=== PATIENT | male | born 1960 | race Caucasian/White ===

== ENCOUNTER 2016-12-24 08:34 | Emergency (ER) | payer BC ==
[2016-12-24 08:53] VITALS: TEMP 96.7
--- NOTE | 2016-12-24 08:57 | ED ---
General Adult HPI - General Chief complaint: Dizziness Stated complaint: Dizziness Time Seen by Provider: 12/24/16 08:49 Source: EMS, RN notes reviewed, old records reviewed Mode of arrival: EMS Limitations: no limitations - History of Present Illness Initial comments: This is a 48-year-old male the ER for evaluation. This patient is coming in for evaluation of dizziness and the room spinning. Patient coming in for evaluation with symptoms any head left-sided to today. Patient states he wakes his diet and tasers in the room does spin around. Mild recent headache, no trauma. No fevers. No significant ear pain or loss of hearing. Patient to get walkie did feel dizzy but that did improve. No history of heart disease no history of CVA, patient does take daily aspirin. - Related Data Home Medications Medication Instructions Recorded Confirmed Aspirin EC [Ecotrin Low Dose] 81 mg PO DAILY 12/24/16 12/24/16 Atenolol [Tenormin] 50 mg PO DAILY 12/24/16 12/24/16 Losartan/Hydrochlorothiazide 1 tab PO DAILY 12/24/16 12/24/16 [Losartan-Hctz 100-25 mg Tab] Allergies Allergy/AdvReac Type Severity Reaction Status Date / Time No Known Allergies Allergy Unverified 12/24/16 09:00 Review of Systems ROS Statement: Those systems with pertinent positive or pertinent negative responses have been documented in the HPI. ROS Other: All systems not noted in ROS Statement are negative. Past Medical History Past Medical History: Hypertension History of Any Multi-Drug Resistant Organisms: None Reported Past Surgical History: Hernia Repair Additional Past Surgical History / Comment(s): left knee scope, and facial surgery Past Psychological History: No Psychological Hx Reported Smoking Status: Never smoker Past Alcohol Use History: None Reported Past Drug Use History: None Reported General Exam - General Exam Comments Initial Comments: No nystagmus noted, no cerebellar symptoms noted on exam, finger-nose, heel to david Limitations: no limitations General appearance: alert, in no apparent distress Head exam: Present: atraumatic, normocephalic, normal inspection Eye exam: Present: normal appearance, PERRL, EOMI. Absent: scleral icterus, conjunctival injection, nystagmus, periorbital swelling ENT exam: Present: normal exam, mucous membranes moist Neck exam: Present: normal inspection. Absent: tenderness, meningismus, lymphadenopathy Respiratory exam: Present: normal lung sounds bilaterally. Absent: respiratory distress, wheezes, rales, rhonchi, stridor Cardiovascular Exam: Present: regular rate, normal rhythm, normal heart sounds. Absent: systolic murmur, diastolic murmur, rubs, gallop, clicks GI/Abdominal exam: Present: soft, normal bowel sounds. Absent: distended, tenderness, guarding, rebound, rigid Extremities exam: Present: normal inspection, full ROM, normal capillary refill. Absent: tenderness, pedal edema, joint swelling, calf tenderness Back exam: Present: normal inspection Neurological exam: Present: alert, oriented X3, CN II-XII intact Psychiatric exam: Present: normal affect, normal mood Skin exam: Present: warm, dry, intact, normal color. Absent: rash Course Vital Signs 12/24/16 08:45 Temperature 96.7 F L Pulse Rate 66 Respiratory 18 Rate Blood Pressure 157/89 O2 Sat by Pulse 91 L Oximetry - Reevaluation(s) Reevaluation #1: 12/24/16 09:55 Patient is currently and remains without symptoms. Patient got up to walk and able to ambulate without ataxia EKG Findings - EKG Comments: EKG Findings:: EKG shows normal sinus rhythm rate of 63, CO 182, QRS 88, QTC 446 Medical Decision Making - Medical Decision Making 56 male here for evaluation vertiginous symptoms. Symptoms are resolved we'll prescribe nausea medication and symptomatic therapy with Antivert, CT is negative low risk for stroke and patient can be discharged home - Lab Data Result diagrams: 12/24/16 08:54 12/24/16 08:54 Lab Results 12/24/16 12/24/16 12/24/16 Range/Units 08:54 08:54 08:54 WBC 7.5 (3.8-10.6) k/uL RBC 5.03 (4.30-5.90) m/uL Hgb 14.6 (13.0-17.5) gm/dL Hct 42.8 (39.0-53.0) % MCV 85.0 (80.0-100.0) fL MCH 29.1 (25.0-35.0) pg MCHC 34.2 (31.0-37.0) g/dL RDW 13.3 (11.5-15.5) % Plt Count 117 L (150-450) k/uL Neutrophils % 79 % Lymphocytes % 16 % Monocytes % 3 % Eosinophils % 1 % Basophils % 1 % Neutrophils # 5.9 (1.3-7.7) k/uL Lymphocytes # 1.2 (1.0-4.8) k/uL Monocytes # 0.2 (0-1.0) k/uL Eosinophils # 0.0 (0-0.7) k/uL Basophils # 0.1 (0-0.2) k/uL PT (9.0-12.0) sec INR (<1.1) APTT (22.0-30.0) sec Sodium 139 (137-145) mmol/L Potassium 3.8 (3.5-5.1) mmol/L Chloride 103 (98-107) mmol/L Carbon Dioxide 24 (22-30) mmol/L Anion Gap 12 mmol/L BUN 21 H (9-20) mg/dL Creatinine 0.91 (0.66-1.25) mg/dL Est GFR (MDRD) Af Amer >60 (>60 ml/min/1.73 sqM) Est GFR (MDRD) Non-Af >60 (>60 ml/min/1.73 sqM) Glucose 165 H (74-99) mg/dL Calcium 9.1 (8.4-10.2) mg/dL Phosphorus 3.1 (2.5-4.5) mg/dL Magnesium 1.8 (1.6-2.3) mg/dL Total Bilirubin 0.6 (0.2-1.3) mg/dL AST 33 (17-59) U/L ALT 56 (21-72) U/L Alkaline Phosphatase 81 (38-126) U/L Total Creatine Kinase 88 (55-170) U/L Total Protein 7.0 (6.3-8.2) g/dL Albumin 4.2 (3.5-5.0) g/dL 12/24/16 Range/Units 08:54 WBC (3.8-10.6) k/uL RBC (4.30-5.90) m/uL Hgb (13.0-17.5) gm/dL Hct (39.0-53.0) % MCV (80.0-100.0) fL MCH (25.0-35.0) pg MCHC (31.0-37.0) g/dL RDW (11.5-15.5) % Plt Count (150-450) k/uL Neutrophils % % Lymphocytes % % Monocytes % % Eosinophils % % Basophils % % Neutrophils # (1.3-7.7) k/uL Lymphocytes # (1.0-4.8) k/uL Monocytes # (0-1.0) k/uL Eosinophils # (0-0.7) k/uL Basophils # (0-0.2) k/uL PT 10.3 (9.0-12.0) sec INR 1.0 (<1.1) APTT 21.4 L (22.0-30.0) sec Sodium (137-145) mmol/L Potassium (3.5-5.1) mmol/L Chloride (98-107) mmol/L Carbon Dioxide (22-30) mmol/L Anion Gap mmol/L BUN (9-20) mg/dL Creatinine (0.66-1.25) mg/dL Est GFR (MDRD) Af Amer (>60 ml/min/1.73 sqM) Est GFR (MDRD) Non-Af (>60 ml/min/1.73 sqM) Glucose (74-99) mg/dL Calcium (8.4-10.2) mg/dL Phosphorus (2.5-4.5) mg/dL Magnesium (1.6-2.3) mg/dL Total Bilirubin (0.2-1.3) mg/dL AST (17-59) U/L ALT (21-72) U/L Alkaline Phosphatase (38-126) U/L Total Creatine Kinase (55-170) U/L Total Protein (6.3-8.2) g/dL Albumin (3.5-5.0) g/dL - Radiology Data Radiology results: report reviewed (CT brain is negative for acute disease), image reviewed Disposition Clinical Impression: Benign paroxysmal positional vertigo Disposition: HOME SELF-CARE Condition: Good Instructions: Vertigo (ED), Benign Paroxysmal Positional Vertigo (ED) Referrals: Antonio Hernandez MD [Primary Care Provider] - 1-2 days
[2016-12-24] MEDS ORDERED: ONDANSETRON 4 MG/2 ML VIAL IVP STA (09:05)
[2016-12-24] MEDS ORDERED: SODIUM CHLORIDE 0.9% 1,000 ML IV STA (09:05)
[2016-12-24] MEDS ORDERED: diphenhydrAMINE 50 MG/ML 1 ML VIAL IVP STA (09:06)
[2016-12-24 09:31] LABS: Basophils # (A) 0.1 k/uL (0-0.2); Basophils % (A) 1 %; CH 30.5; Eosinophils % (A) 1 %; HCT 42.8 % (39.0-53.0); HDW 2.86; HGB 14.6 gm/dL (13.0-17.5); Luc # (Auto) 0.07; Luc % (Auto) 1; Lymphocytes # (A) 1.2 k/uL (1.0-4.8); Lymphocytes % (A) 16 %; MCH 29.1 pg (25.0-35.0); MCHC 34.2 g/dL (31.0-37.0); Mean Platelet Volume 10.1; Monocytes # (A) 0.2 k/uL (0-1.0); Monocytes % (A) 3 %; Neutrophils # (A) 5.9 k/uL (1.3-7.7); Neutrophils % (A) 79 %; RBC 5.03 m/uL (4.30-5.90); RDW 13.3 % (11.5-15.5); WBC 7.5 k/uL (3.8-10.6); WBC (Perox) 7.76
[2016-12-24 09:38] LABS: ALT 56 U/L (21-72); AST 33 U/L (17-59); Alkaline Phosphatase 81 U/L (38-126); Anion Gap 12 mmol/L; Blood Urea Nitrogen 21 mg/dL (9-20); Calcium 9.1 mg/dL (8.4-10.2); Carbon Dioxide 24 mmol/L (22-30); Chloride 103 mmol/L (98-107); Glucose 165 mg/dL (74-99); Magnesium 1.8 mg/dL (1.6-2.3); Non-African American GFR(MDRD) >60 (>60 ml/min/1.73 sqM); Phosphorous 3.1 mg/dL (2.5-4.5); Potassium 3.8 mmol/L (3.5-5.1); Sodium 139 mmol/L (137-145); Total Bilirubin 0.6 mg/dL (0.2-1.3)
[2016-12-24 09:43] LABS: Prothrombin Time 10.3 sec (9.0-12.0)
[2016-12-24 09:47] LABS: Creatine Kinase 88 U/L (55-170)
--- NOTE | 2016-12-24 09:51 | CT ---
EXAMINATION TYPE: CT brain wo con DATE OF EXAM: 12/24/2016 9:48 AM COMPARISON: NONE HISTORY: Weakness CT DLP: [address] of the brain was performed. The ventricles, basal cisterns and sulci overlying the cerebral convexities demonstrate mild enlargem ent. There is no evidence for intracranial hemorrhage or sulcal effacement. There is decreased attenuation about the periventricular white matter and deep white matter of both c erebral hemispheres, compatible with chronic small vessel ischemia. Differential diagnosis does inclu de demyelination. No mass effects are seen.No midline shift. Osseous calvarium is intact. If symptoms persist consider MRI. IMPRESSION: 1. Age related atrophic and chronic small vessel ischemic change without acute intracranial process s een at this time.
[2016-12-24 09:52] LABS: Partial Thromboplastin Time 21.4 sec (22.0-30.0)
[2016-12-24 10:00] LABS: Creatine Kinase MB 0.4 ng/mL (0.0-2.4); Troponin I <0.012 ng/mL (0.000-0.034)
[2016-12-24 10:25] VITALS: BP 143/64; PULSE 71; RESP 16
== END 2016-12-24 10:24 | disposition home or self-care (01) ==
LOC: EC 08:34
DX: H81.10 Benign paroxysmal vertigo, unspecified ear (principal); Z79.82 Long term (current) use of aspirin; Z79.899 Other long term (current) drug therapy; I10 Essential (primary) hypertension
CPT/HCPCS: 36415; 93005; 80053; 82550; 82553; 83735; 84100; 84484; 85025; 85610; 85730; 70450; 96374; 96375; 96361; 99285; J1200; J2405

== ENCOUNTER → 2023-04-30 | Outpatient (CLI) | payer BC ==
[2023-04-30 15:12] LABS: Basophils # (A) 0.03 X 10*3/uL (0.00-0.10); Basophils % (A) 0.6 %; Eosinophils # (A) 0.09 X 10*3/uL (0.04-0.35); Eosinophils % (A) 1.7 %; HCT 42.3 % (39.6-50.0); HGB 13.9 g/dL (13.0-17.0); Immature Grans, Automated 0.6 %; Lymphocytes # (A) 1.96 X 10*3/uL (0.90-5.00); Lymphocytes % (A) 37.3 %; MCH 29.3 pg (27.0-32.0); MCHC 32.9 g/dL (32.0-37.0); MCV 89.2 fL (80.0-97.0); Mean Platelet Volume 12.8 fL (9.5-12.2); Monocytes # (A) 0.33 X 10*3/uL (0.20-1.00); Monocytes % (A) 6.3 %; NRBC Per 100 WBC 0 /100 WBCS (0.0-0.0); Neutrophils # (A) 2.82 X 10*3/uL (1.80-7.70); Neutrophils % (A) 53.5 %; Platelet Count 130 X 10*3/uL (140-440); RBC 4.74 X 10*6/uL (4.40-5.60); RDW 13.8 % (11.5-14.5); WBC 5.26 X 10*3/uL (4.50-10.00)
[2023-04-30 16:03] LABS: ALT 62 U/L (10-49); AST 46 U/L (14-35); African American GFR (CKD) 91.8 (60.0-200.0); Albumin 4.4 g/dL (3.8-4.9); Albumin/Globulin Ratio 1.85 (1.60-3.17); Alkaline Phosphatase 81 U/L (41-126); Blood Urea Nitrogen 18.8 mg/dL (9.0-27.0); Calcium 9.4 mg/dL (8.7-10.3); Carbon Dioxide 25.3 mmol/L (20.0-27.5); Chloride 104 mmol/L (96-109); Chol/HDL Ratio 4.99 Ratio; Globulin 2.4 g/dL (1.6-3.3); Glucose 111 mg/dL (70-110); LDL Cholesterol,Calculated 95.9 mg/dL (0.0-131.0); Non-African American GFR(CKD) 79.2 (60.0-200.0); Potassium 4.2 mmol/L (3.5-5.5); Sodium 140 mmol/L (135-145); Total Protein 6.8 g/dL (6.2-8.2)
== END | disposition home or self-care (01) ==
LOC: LABWHC1 08:50
PROVIDERS: ATTEND Family Medicine
DX: Z12.5 Encounter for screening for malignant neoplasm of prostate (principal); E78.5 Hyperlipidemia, unspecified; R73.9 Hyperglycemia, unspecified
CPT/HCPCS: 36415; 80053; 80061; 83036; 84153; 84443; 85025

== ENCOUNTER → 2024-05-08 | Outpatient (CLI) | payer BC ==
--- NOTE | 2024-05-08 18:13 | XR ---
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 FINDINGS: Lungs/Pleura: There is no evidence of pleural effusion, focal consolidation, or pneumothorax. Pulmonary vascularity: Unremarkable. Heart/mediastinum: Cardiomediastinal silhouette is unremarkable. Musculoskeletal: No acute osseous pathology. IMPRESSION: No acute cardiopulmonary disease/process.
== END | disposition home or self-care (01) ==
LOC: RADXRMAIN 17:23
PROVIDERS: ATTEND Family Medicine
DX: I25.2 Old myocardial infarction (principal); R06.09 Other forms of dyspnea
CPT/HCPCS: 71046

== ENCOUNTER → 2024-05-08 | Outpatient (CLI) | payer BC ==
--- NOTE | 2024-05-09 14:53 | CA ---
Transthoracic Echo Report Name: Elijah Reece Age: 63 Gender: M : 1960 Exam Date: 05/08/2024 17:55 Exam Location: [place] [facility] Ht (in): 71 Wt (lb): 295 Ordering Physician: Antonio Hernandez MD Attending/Referring Phys: Antonio Hernandez MD Answering Service Telephone Operator Amanda Cheng RDCS Procedure CPT: Indications: I10 HTN I25.2 OLD MYOCARDIAL INFARCTION Cardiac Hx: Technical Quality: Fair Contrast 1: Total Dose (mL): Contrast 2: Total Dose (mL): MEASUREMENTS (Male / Female) Normal Values 2D ECHO LV Diastolic Diameter PLAX 4.8 cm 4.2 - 5.9 / 3.9 - 5.3 cm LV Systolic Diameter PLAX 3.0 cm IVS Diastolic Thickness 1.7 cm 0.6 - 1.0 / 0.6 - 0.9 cm LVPW Diastolic Thickness 1.5 cm 0.6 - 1.0 / 0.6 - 0.9 cm LV Relative Wall Thickness 0.7 RV Internal Dim ED PLAX 4.3 cm LA Volume 86.6 cm??? 18 - 58 / 22 - 52 cm??? LA Volume Index 32.7 cm???/m??? 16 - 28 cm???/m??? M-MODE Aortic Root Diameter MM 3.2 cm LA Systolic Diameter MM 5.4 cm LA Ao Ratio MM 1.7 AV Cusp Separation MM 2.3 cm DOPPLER AV Peak Velocity 118.2 cm/s AV Peak Gradient 5.6 mmHg AV Mean Velocity 71.3 cm/s AV Mean Gradient 2.4 mmHg AV Velocity Time Integral 22.8 cm LVOT Peak Velocity 82.1 cm/s LVOT Peak Gradient 2.7 mmHg LVOT Velocity Time Integral 19.2 cm MV Area PHT 3.3 cm??? Mitral E Point Velocity 80.1 cm/s Mitral A Point Velocity 60.1 cm/s Mitral E to A Ratio 1.3 MV Deceleration Time 228.2 ms MV E' Velocity 7.6 cm/s Mitral E to MV E' Ratio 10.6 TR Peak Velocity 232.3 cm/s TR Peak Gradient 21.6 mmHg Right Ventricular Systolic Press 25.1 mmHg FINDINGS Left Ventricle Moderately increased left ventricular wall thickness. Left ventricular cavity size normal. Normal left ventricular systolic function with no obvious regional wall motion abnormalities. Left ventricular ejection fraction is estimated at 55-60 %. Grade 1 diastolic dysfunction. Right Ventricle Moderate right ventricular dilatation. Right ventricular systolic pressure within normal limits. Right Atrium Normal right atrial size. Left Atrium Mildly increased left atrial volume. Mildly increased left atrial area. Mitral Valve Structurally normal mitral valve. Mild mitral regurgitation. Aortic Valve No aortic valve stenosis or regurgitation. Tricuspid Valve Mild tricuspid regurgitation. Pulmonic Valve Structurally normal pulmonic valve. Pericardium No pericardial effusion. Aorta Normal size aortic root and proximal ascending aorta. CONCLUSIONS Technically difficult study for interpretation Poorly visualized endocardium an intracardiac valves Normal LV systolic function Previewed by: Dr. Ez Jimenez MD (Electronically Signed) Final Date: 09 May 2024 14:52
== END | disposition home or self-care (01) ==
LOC: RADECHMAIN 17:28
PROVIDERS: ATTEND Family Medicine
DX: I10 Essential (primary) hypertension (principal); I25.2 Old myocardial infarction
CPT/HCPCS: 93306

== ENCOUNTER 2024-06-21 01:12 | Observation (INO) | payer BC, MEDICARE ==
--- NOTE | 2024-06-21 02:13 | ED ---
Abdominal Pain HPI - General Chief Complaint: Back Pain/Injury Stated Complaint: L Hip and Low Back Pain Time Seen by Provider: 06/21/24 01:44 Source: patient, RN notes reviewed, old records reviewed Mode of arrival: ambulatory Limitations: no limitations - History of Present Illness Initial Comments: This is a 63-year-old male to the ER today for evaluation abdominal pain abdominal pain back pain left hip pain pain rating to his groin and abdomen. Edvin ramirez has severe and significant abdominal pain here in the ER without fever no bowel or bladder habits MD Complaint: abdominal pain, other (Left hip pain) Location: LLQ, suprapubic, L flank Radiation: LLQ, L flank Migration to: LLQ Severity: severe Severity scale (1-10): 8 Quality: stabbing, aching Consistency: intermittent Improves With: nothing Worsens With: nothing Context: other (0) Associated Symptoms: nausea Treatments Prior to Arrival: other (0) - Related Data Home Medications Medication Instructions Recorded Confirmed Aspirin EC [Ecotrin Low Dose] 162 mg PO DAILY 12/24/16 06/21/24 Losartan/Hydrochlorothiazide 1 tab PO DAILY 12/24/16 06/21/24 [Losartan-Hctz 100-25 mg Tab] Citalopram Hydrobromide [CeleXA] 10 mg PO DAILY 06/21/24 06/21/24 Rosuvastatin [Crestor] 10 mg PO DAILY 06/21/24 06/21/24 atenoloL [Tenormin] 50 mg PO DAILY 06/21/24 06/21/24 metFORMIN HCL ER [Glucophage XR] 500 mg PO DAILY 06/21/24 06/21/24 Allergies Allergy/AdvReac Type Severity Reaction Status Date / Time Anesthetics - Amide Type - AdvReac Nausea & Verified 06/21/24 08:44 Select A Vomiting Anesthetics - Teresa Type- AdvReac Nausea & Verified 06/21/24 08:44 Parabens Vomiting Review of Systems ROS Statement: Those systems with pertinent positive or pertinent negative responses have been documented in the HPI. ROS Other: All systems not noted in ROS Statement are negative. Past Medical History Past Medical History: Hypertension History of Any Multi-Drug Resistant Organisms: None Reported Past Surgical History: Hernia Repair Additional Past Surgical History / Comment(s): left knee scope, and facial surgery Past Psychological History: No Psychological Hx Reported Smoking Status: Never smoker Past Alcohol Use History: None Reported Past Drug Use History: None Reported General Exam Limitations: no limitations General appearance: alert, in no apparent distress Head exam: Present: atraumatic, normocephalic, normal inspection Eye exam: Present: normal appearance, PERRL, EOMI. Absent: scleral icterus, conjunctival injection, periorbital swelling ENT exam: Present: normal exam, mucous membranes moist Neck exam: Present: normal inspection. Absent: tenderness, meningismus, lymphadenopathy Respiratory exam: Present: normal lung sounds bilaterally. Absent: respiratory distress, wheezes, rales, rhonchi, stridor Cardiovascular Exam: Present: regular rate, normal rhythm, normal heart sounds. Absent: systolic murmur, diastolic murmur, rubs, gallop, clicks GI/Abdominal exam: Present: soft, normal bowel sounds. Absent: distended, tenderness, guarding, rebound, rigid Extremities exam: Present: normal inspection, full ROM, normal capillary refill. Absent: tenderness, pedal edema, joint swelling, calf tenderness Back exam: Present: normal inspection Neurological exam: Present: alert, oriented X3, CN II-XII intact Psychiatric exam: Present: normal affect, normal mood Skin exam: Present: warm, dry, intact, normal color. Absent: rash Course Vital Signs 06/21/24 06/21/24 06/21/24 01:31 06:54 08:07 Temperature 97.4 F L 97.6 F Pulse Rate 65 57 L 56 L Respiratory 20 18 20 Rate Blood Pressure 145/90 143/89 137/89 O2 Sat by Pulse 95 96 95 Oximetry - Reevaluation(s) Reevaluation #1: 06/21/24 03:45 Medical records reviewed Reevaluation #2: 06/21/24 03:46 Patient symptoms improved Reevaluation #3: 06/21/24 06:40 Patient for results and questions answered Reevaluation #4: Was pt. sent in by a medical professional or institution (, PA, MAP DRAFTER, urgent care, hospital, or [facility]...) When possible be specific @ -no Did you speak to anyone other than the patient for history (EMS, parent, family, police, friend...)? What history was obtained from this source @ -no Did you review nursing and triage notes (agree or disagree)? Why? @ -agree Are old charts reviewed (outside hosp., previous admission, EMS record, old EKG, old radiological studies, urgent care reports/EKG's, [facility] records)? Report findings @ -yes Differential Diagnosis (chest pain, altered mental status, abdominal pain women, abdominal pain men, vaginal bleeding, weakness, fever, dyspnea, syncope, headache, dizziness, GI bleed, back pain, seizure, CVA, palpatations, mental health, musculoskeletal)? @ -prior EKG interpreted by me (3pts min.). @ -yes X-rays interpreted by me (1pt min.). @ -no CT interpreted by me (1pt min.). @ -yes negative for acute disease U/S interpreted by me (1pt. min.). @ -no What testing was considered but not performed or refused? (CT, X-rays, U/S, labs)? Why? @ -none What meds were considered but not given or refused? Why? @ -none Did you discuss the management of the patient with other professionals (professionals i.e. , PA, MAP DRAFTER, lab, RT, psych nurse, older adult social work specialist, greaser and oiler, teacher, commanding officer garage, caser)? Give summary @ -no Was smoking cessation discussed for >3mins.? @ -no Was critical care preformed (if so, how long)? @ -no Were there social determinants of health that impacted care today? How? (Homelessness, low income, unemployed, alcoholism, drug addiction, transportat ion, low edu. Level, literacy, decrease access to med. care, penitentiary, rehab)? @ -none Was there de-escalation of care discussed even if they declined (Discuss DNR or withdrawal of care, Hospice)? DNR status @ -no What co-morbidities impacted this encounter? (DM, HTN, Smoking, COPD, CAD, Cancer, CVA, ARF, Chemo, Hep., AIDS, mental health diagnosis, sleep apnea, morbid obesity)? @ -none Was patient admitted / discharged? Hospital course, mention meds given and route, prescriptions, significant lab abnormalities, going to OR and other pertinent info. @ - 63 Patient has male to the ER for evaluation of severe left-sided back pain left flank pain pain rating around left side of his abdomen, no rash noted. Difficulty with urination. Admitted Undiagnosed new problem with uncertain prognosis? @ -no Drug Therapy requiring intensive monitoring for toxicity (Heparin, Nitro, Insulin, Cardizem)? @ -no Were any procedures done? @ -no Diagnosis/symptom? @ -Pain back pain flank pain Acute, or Chronic, or Acute on Chronic? @ -Acute Uncomplicated (without systemic symptoms) or Complicated (systemic symptoms)? @ -Complicated Side effects of treatment? @ -no Exacerbation, Progression, or Severe Exacerbation? @ -exacerbation Poses a threat to life or bodily function? How? (Chest pain, USA, AR, pneumonia, PE, COPD, DKA, ARF, appy, cholecystitis, CVA, Diverticulitis, Homicidal, Suicidal, threat to staff... and all critical care pts) @ -yes extremes of age Reevaluation #5: Differential Abdominal Pain Men: Appendicitis, cholecystitis, diverticulosis, ischemic bowel, pancreatitis, hepatitis, UTI, gastroenteritis, AAA, incarcerated hernia, bowel obstruction, co nstipation, inflammatory bowel, hepatitis, peptic ulcer disease, splenic infarction, perforated viscus, testicular torsion, this is not meant to be an all-inclusive list - Consultations Consultation #1: spoke With [facility] who agrees to admit this patient Medical Decision Making - Medical Decision Making 63 Patient has male to the ER for evaluation of severe left-sided back pain left flank pain pain rating around left side of his abdomen, no rash noted. Difficulty with urination. - Lab Data Result diagrams: 06/22/24 05:46 06/22/24 05:46 Lab Results 06/21/24 06/21/24 06/21/24 Range/Units 02:43 02:43 02:43 WBC 7.6 (3.8-10.6) k/uL RBC 4.69 (4.30-5.90) m/uL Hgb 14.2 (13.0-17.5) gm/dL Hct 41.9 (39.0-53.0) % MCV 89.3 (80.0-100.0) fL MCH 30.3 (25.0-35.0) pg MCHC 33.9 (31.0-37.0) g/dL RDW 13.4 (11.5-15.5) % Plt Count 139 L (150-450) k/uL MPV 10.3 Neutrophils % 67 % Lymphocytes % 26 % Monocytes % 5 % Eosinophils % 1 % Basophils % 0 % Neutrophils # 5.1 (1.3-7.7) k/uL Lymphocytes # 2.0 (1.0-4.8) k/uL Monocytes # 0.4 (0-1.0) k/uL Eosinophils # 0.1 (0-0.7) k/uL Basophils # 0.0 (0-0.2) k/uL Sodium 137 (137-145) mmol/L Potassium 5.8 H (3.5-5.1) mmol/L Chloride 107 (98-107) mmol/L Carbon Dioxide 23 (22-30) mmol/L Anion Gap 7 mmol/L BUN 22 H (9-20) mg/dL Creatinine 0.84 (0.66-1.25) mg/dL Est GFR (CKD-EPI)AfAm >90 (>60 ml/min/1.73 sqM) Est GFR (CKD-EPI)NonAf >90 (>60 ml/min/1.73 sqM) Glucose 172 H (74-99) mg/dL Plasma Lactic Acid Edward 1.4 (0.7-2.0) mmol/L Calcium 9.3 (8.4-10.2) mg/dL Phosphorus 3.9 (2.5-4.5) mg/dL Magnesium 2.0 (1.6-2.3) mg/dL Total Bilirubin 1.1 (0.2-1.3) mg/dL AST 90 H (17-59) U/L ALT 66 H (4-49) U/L Alkaline Phosphatase 52 (38-126) U/L Total Protein 7.7 (6.3-8.2) g/dL Albumin 4.9 (3.5-5.0) g/dL Amylase 65 (30-110) U/L Lipase 299 (23-300) U/L Urine Color Urine Appearance (Clear) Urine pH (5.0-8.0) Ur Specific [place] (1.001-1.035) Urine Protein (Negative) Urine Glucose (UA) (Negative) Urine Ketones (Negative) Urine Blood (Negative) Urine Nitrite (Negative) Urine Bilirubin (Negative) Urine Urobilinogen (<2.0) mg/dL Ur Leukocyte Esterase (Negative) 06/21/24 Range/Units 05:04 WBC (3.8-10.6) k/uL RBC (4.30-5.90) m/uL Hgb (13.0-17.5) gm/dL Hct (39.0-53.0) % MCV (80.0-100.0) fL MCH (25.0-35.0) pg MCHC (31.0-37.0) g/dL RDW (11.5-15.5) % Plt Count (150-450) k/uL MPV Neutrophils % % Lymphocytes % % Monocytes % % Eosinophils % % Basophils % % Neutrophils # (1.3-7.7) k/uL Lymphocytes # (1.0-4.8) k/uL Monocytes # (0-1.0) k/uL Eosinophils # (0-0.7) k/uL Basophils # (0-0.2) k/uL Sodium (137-145) mmol/L Potassium (3.5-5.1) mmol/L Chloride (98-107) mmol/L Carbon Dioxide (22-30) mmol/L Anion Gap mmol/L BUN (9-20) mg/dL Creatinine (0.66-1.25) mg/dL Est GFR (CKD-EPI)AfAm (>60 ml/min/1.73 sqM) Est GFR (CKD-EPI)NonAf (>60 ml/min/1.73 sqM) Glucose (74-99) mg/dL Plasma Lactic Acid Edward (0.7-2.0) mmol/L Calcium (8.4-10.2) mg/dL Phosphorus (2.5-4.5) mg/dL Magnesium (1.6-2.3) mg/dL Total Bilirubin (0.2-1.3) mg/dL AST (17-59) U/L ALT (4-49) U/L Alkaline Phosphatase (38-126) U/L Total Protein (6.3-8.2) g/dL Albumin (3.5-5.0) g/dL Amylase (30-110) U/L Lipase (23-300) U/L Urine Color Colorless Urine Appearance Clear (Clear) Urine pH 6.0 (5.0-8.0) Ur Specific [place] 1.024 (1.001-1.035) Urine Protein Negative (Negative) Urine Glucose (UA) Negative (Negative) Urine Ketones Negative (Negative) Urine Blood Negative (Negative) Urine Nitrite Negative (Negative) Urine Bilirubin Negative (Negative) Urine Urobilinogen <2.0 (<2.0) mg/dL Ur Leukocyte Esterase Negative (Negative) - Radiology Data Radiology results: report reviewed (CT abdomen pelvis is negative for acute disease), image reviewed Disposition Clinical Impression: Back pain, Left flank pain Disposition: ADMITTED IP TO THIS [facility] Condition: Fair Is patient prescribed a controlled substance at d/c from ED?: No Time of Disposition: 06:40
[2024-06-21] MEDS: MORPHINE SULFATE 4 MG/ML SYRINGE IV STA (02:39)
[2024-06-21] MEDS: ONDANSETRON 4 MG/2 ML VIAL IVP STA (02:39)
[2024-06-21] MEDS: SODIUM CHLORIDE 0.9% 1,000 ML IV STA (02:41)
[2024-06-21] MEDS: PANTOPRAZOLE 40 MG/10 ML VIAL IVP STA (02:41)
[2024-06-21 03:05] LABS: Basophils % (A) 0 %; Eosinophils # (A) 0.1 k/uL (0-0.7); Eosinophils % (A) 1 %; HCT 41.9 % (39.0-53.0); HGB 14.2 gm/dL (13.0-17.5); Lymphocytes % (A) 26 %; MCH 30.3 pg (25.0-35.0); MCHC 33.9 g/dL (31.0-37.0); MCV 89.3 fL (80.0-100.0); Mean Platelet Volume 10.3; Monocytes # (A) 0.4 k/uL (0-1.0); Monocytes % (A) 5 %; Neutrophils # (A) 5.1 k/uL (1.3-7.7); Neutrophils % (A) 67 %; Platelet Count 139 k/uL (150-450); RBC 4.69 m/uL (4.30-5.90); RDW 13.4 % (11.5-15.5); WBC 7.6 k/uL (3.8-10.6)
[2024-06-21 03:23] LABS: ALT 66 U/L (4-49); AST 90 U/L (17-59); African American GFR (CKD) >90 (>60 ml/min/1.73 sqM); Albumin 4.9 g/dL (3.5-5.0); Alkaline Phosphatase 52 U/L (38-126); Amylase 65 U/L (30-110); Anion Gap 7 mmol/L; Blood Urea Nitrogen 22 mg/dL (9-20); Calcium 9.3 mg/dL (8.4-10.2); Carbon Dioxide 23 mmol/L (22-30); Chloride 107 mmol/L (98-107); Glucose 172 mg/dL (74-99); Lipase 299 U/L (23-300); Non-African American GFR(CKD) >90 (>60 ml/min/1.73 sqM); Phosphorus 3.9 mg/dL (2.5-4.5); Sodium 137 mmol/L (137-145); Total Bilirubin 1.1 mg/dL (0.2-1.3); Total Protein 7.7 g/dL (6.3-8.2)
[2024-06-21 03:51] LABS: Potassium 5.8 mmol/L (3.5-5.1)
--- NOTE | 2024-06-21 04:41 | CT ---
EXAM: CT Abdomen and Pelvis With Intravenous Contrast CLINICAL HISTORY: ITS.REASON CT Reason: abdominal pain TECHNIQUE: Axial computed tomography images of the abdomen and pelvis with intravenous contrast. CTDI is 56.1 mGy and DLP is 2992 mGy-cm. This CT exam was performed using one or more of the following dose reduction techniques: automated exposure control, adjustment of the mA and/or kV according to patient size, and/or use of iterative reconstruction technique. COMPARISON: No relevant prior studies available. FINDINGS: Lung bases: Unremarkable. No mass. No consolidation. ABDOMEN: Liver: Hepatic steatosis. Gallbladder and bile ducts: Unremarkable. No calcified stones. No ductal dilation. Pancreas: Unremarkable. No mass. No ductal dilation. Spleen: Unremarkable. No splenomegaly. Adrenals: Unremarkable. No mass. Kidneys and ureters: Unremarkable. No solid mass. No hydronephrosis. Stomach and bowel: Unremarkable. No obstruction. No mucosal thickening. PELVIS: Appendix: No findings to suggest acute appendicitis. Bladder: Unremarkable. No mass. Reproductive: Unremarkable as visualized. ABDOMEN and PELVIS: Intraperitoneal space: Unremarkable. No free air. No significant fluid collection. Bones/joints: No acute fracture. No dislocation. Soft tissues: Small fat-containing umbilical hernia. Vasculature: Unremarkable. No abdominal aortic aneurysm. Lymph nodes: Unremarkable. No enlarged lymph nodes. IMPRESSION: No acute findings in the abdomen or pelvis.
[2024-06-21] MEDS: KETOROLAC 15 MG/ML 1 ML VIAL IVP STA (04:56)
[2024-06-21] MEDS: HYDROmorphone 1 MG/ML 1 ML SYRINGE IVP STA (04:57)
[2024-06-21] MEDS: ACETAMINOPHEN IV (For NPO) 1,000 MG in EMPTY BAG 1 BAG IVPB ONE (05:35)
[2024-06-21 06:19] LABS: Appearance,Urine Clear (Clear); Bilirubin,Urine Negative (Negative); Blood,Urine Negative (Negative); Color,Urine Colorless; Glucose,Urine (UA) Negative (Negative); Ketones,Urine Negative (Negative); Leukocyte Esterase,Urine Negative (Negative); Nitrite,Urine Negative (Negative); Protein,Urine Negative (Negative); Specific Gravity,Urine 1.024 (1.001-1.035); Urobilinogen,Urine <2.0 mg/dL (<2.0)
[2024-06-21] MEDS ORDERED: NALOXONE 0.4 MG/ML 1 ML VIAL IV PRN (06:36)
[2024-06-21] MEDS: SODIUM CHLORIDE 0.9% 1,000 ML IV SCH (06:56)
[2024-06-21] MEDS: HYDROmorphone 1 MG/ML 1 ML SYRINGE IVP PRN (08:11)
--- NOTE | 2024-06-21 08:23 | P.PN ---
Progress Note - Text Progress Note Date: 06/21/24 Images and chart reviewed. Full consult pending eval. CT reviewed of ABD and Pelvis. This demonstrates in the lumbar spine severe spondylosis from L3-S1 with severe facet arthrosis. There is near complete disc collapse at these levels with vacuum disc phenomena. There is severe facet hype rtrophy and arthropathy causing subfacet steonosis and b/l foraminal stenosis at these levels. There are no fractures noted in T or L spine. There is ankylosis of the anterior T spine with osteophytosis. No fractures. Alignment is relatively maintained except for the mentioned collapse. Apparent distended abdomen with full bladder noted. No other obvious osseous abnormalities noted. We will make further recs upon full evaluation. Thank you for this consult.
--- NOTE | 2024-06-21 10:17 | P.CNOR ---
History of Present Illness - [facility] Consult date: 06/21/24 Requesting physician: Keon Hamilton Consult reason: low back pain History of present illness: History of Presenting Illness Patient is a pleasant 63-year-old male who presented to the ER with severe back pain. Patient does report a sharp aching left lateral low back pain with an onset of 06/15/2024, after he was reeling in a large fish and "tweaked" his back. Patient does report that at this time the pain was severe and brought him to his knees and he became nauseated. He states he had to crawl to his phone to call for help. He did report improvement of his symptoms after taking ibuprofen and resting. Throughout the week he states he was completing jobs around the house with some heavy lifting. He states he has had multiple episodes of his back flaring up. He states last night the pain became so severe he was having difficulty walking. In addition to his low back pain he reports it radiates into his left groin. He denies any radiculopathy or numbness/tingling into the lower extremities. He lives at home with his spouse and is normally independent. He does state he has been attempting to lose weight and has not been successful with being approved for weightloss injections. Patient denies any orthopedic history. Review of Systems Pertinent positives and negatives as discussed in HPI, a complete review of systems was performed and all other systems are negative. Physical Examination General: The patient is awake and alert, in no acute distress Skin: Skin is warm and dry with no obvious rashes or lesions. Eye: Pupils are equal, round and reactive to light, extra-ocular movements are intact; there is normal conjunctiva bilaterally. Neck: The neck is supple, there is no tenderness and ROM intact. Cardiovascular: There is a regular rate and rhythm. No murmur, rub or gallop is appreciated. Respiratory: Respirations are non-labored, breath sounds are equal. Gastrointestinal: Soft, non-distended, non-tender abdomen. Back: There is mild tenderness to palpation in the left lateral lumbar region. There is no obvious deformity. Musculoskeletal: Shoulder abduction 5/5, elbow flexors 5/5, wrist dorsiflexors 5/5. 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 Neurological: CN 2-12 intact. There are no obvious motor or sensory deficits. Movement and coordination equal and intact. Sensory exam to light touch intact C5-T1 and intact from L2-S1. Reflexes 2/4 in bilateral upper and lower extremities. Negative Hoffmans, babinski, and clonus signs. Psychiatric: Cooperative, appropriate mood & affect, normal judgment. Assessment and Plan CT of the ABD/Pelvis was reviewed by Dr. Fernando, please see previous progress note. Severe L3-S1 spondylosis with stenosis L3-S1 facet hypertrophy Thoracic spine ankylosis with osteophytosis Mechanical low back pain At this time we do not recommend any emergent/urgent orthopedic surgical intervention. We will continue with conservative treatment options at this time and evaluate further if patient's symptoms continue or worsen. 2. Appreciate medical management 3. Pain management -continue with IV Dilaudid, patient may benefit from low- dose oral narcotic. Trial of IV Decadron and Flexeril has been ordered. 4. GI prophylaxis -per medicine 5. DVT prophylaxis -per medicine 6. PT/OT - consult placed: weightbearing as tolerated with a walker as needed. 7. Appreciate consult I reviewed and discussed this case with my attending Dr. Fernando, whom has reviewed this chart and films and is in agreement with assessment and plan of care as outlined above. I have personally seen and examined the patient, performed the documentation and the assessment and plan as written. Number of minutes spent on the visit: 30m. Past Medical History Past Medical History: Hypertension History of Any Multi-Drug Resistant Organisms: None Reported Past Surgical History: Hernia Repair Additional Past Surgical History / Comment(s): left knee scope, and facial surgery Past Psychological History: No Psychological Hx Reported Smoking Status: Never smoker Past Alcohol Use History: None Reported Past Drug Use History: None Reported Medications and Allergies Home Medications Medication Instructions Recorded Confirmed Type Aspirin EC [Ecotrin Low Dose] 162 mg PO DAILY 12/24/16 06/21/24 History Losartan/Hydrochlorothiazide 1 tab PO DAILY 12/24/16 06/21/24 History [Losartan-Hctz 100-25 mg Tab] Citalopram Hydrobromide [CeleXA] 10 mg PO DAILY 06/21/24 06/21/24 History Rosuvastatin [Crestor] 10 mg PO DAILY 06/21/24 06/21/24 History atenoloL [Tenormin] 50 mg PO DAILY 06/21/24 06/21/24 History metFORMIN HCL ER [Glucophage XR] 500 mg PO DAILY 06/21/24 06/21/24 History Allergies Allergy/AdvReac Type Severity Reaction Status Date / Time Anesthetics - Amide Type - AdvReac Nausea & Verified 06/21/24 08:44 Select A Vomiting Anesthetics - Teresa Type- AdvReac Nausea & Verified 06/21/24 08:44 Parabens Vomiting Results - Labs Labs: Abnormal Lab Results - Last 24 Hours (Table) 06/21/24 06/21/24 Range/Units 02:43 02:43 Plt Count 139 L (150-450) k/uL Potassium 5.8 H (3.5-5.1) mmol/L BUN 22 H (9-20) mg/dL Glucose 172 H (74-99) mg/dL AST 90 H (17-59) U/L ALT 66 H (4-49) U/L H & H 06/21/24 Range/Units 02:43 Hgb 14.2 (13.0-17.5) gm/dL Hct 41.9 (39.0-53.0) % Result Diagrams: 06/21/24 02:43 06/21/24 02:43
--- NOTE | 2024-06-21 11:04 | P.CNNES ---
History of Present Illness Consult date: 06/21/24 Requesting physician: Keon Hamilton Reason for Consult: pain History of Present Illness: This is a 63-year-old gentleman present emergency department because of chronic lower back pain. Patient stated that he developed significant lower back pain since this past Saturday while he was fishing. He did that he was trying to catch a fish and was difficult as a result he developed left lower back pain that is rating down to the anterior left inguinal region. Because of the back pain he went down on his knees. He denies any urinary or bowel incontinence. Denies any weakness or numbness. Denies any trauma to the lower back. Denies any similar presentation in the past. Some of the work-up during this hospital visit consisted: I reviewed the lab workup. CT abdomen and pelvis is reported as no acute findings. Orthopedic surgery team reviewed the images and felt the patient has L3-S1 severe spondylosis with severe facet arthrosis and there is near complete disc collapse at this level with vacuum disc phenomenon. There is severe facet hypertrophy and arthropathy causing some facet stenosis and bilateral foraminal stenosis at this level. Review of Systems The positive and negative as per HPI. Past Medical History Past Medical History: Hypertension History of Any Multi-Drug Resistant Organisms: None Reported Past Surgical History: Hernia Repair Additional Past Surgical History / Comment(s): left knee scope, and facial surgery Past Psychological History: No Psychological Hx Reported Smoking Status: Never smoker Past Alcohol Use History: None Reported Past Drug Use History: None Reported Medications and Allergies Home Medications Medication Instructions Recorded Confirmed Type Aspirin EC [Ecotrin Low Dose] 162 mg PO DAILY 12/24/16 06/21/24 History Losartan/Hydrochlorothiazide 1 tab PO DAILY 12/24/16 06/21/24 History [Losartan-Hctz 100-25 mg Tab] Citalopram Hydrobromide [CeleXA] 10 mg PO DAILY 06/21/24 06/21/24 History Rosuvastatin [Crestor] 10 mg PO DAILY 06/21/24 06/21/24 History atenoloL [Tenormin] 50 mg PO DAILY 06/21/24 06/21/24 History metFORMIN HCL ER [Glucophage XR] 500 mg PO DAILY 06/21/24 06/21/24 History Allergies Allergy/AdvReac Type Severity Reaction Status Date / Time Anesthetics - Amide Type - AdvReac Nausea & Verified 06/21/24 08:44 Select A Vomiting Anesthetics - Teresa Type- AdvReac Nausea & Verified 06/21/24 08:44 Parabens Vomiting Physical Examination - Vital Signs Vital Signs: Vital Signs Temp Pulse Resp BP Pulse Ox 06/21/24 08:07 97.6 F 56 L 20 137/89 95 06/21/24 06:54 57 L 18 143/89 96 06/21/24 01:31 97.4 F L 65 20 145/90 95 Intake and Output 06/20/24 06/21/24 06/21/24 22:59 06:59 14:59 Intake Total 200 Balance 200 Intake: Oral 200 Other: Weight 138.346 kg 138.346 kg GENERAL: The patient is lying in bed and is not in acute distress. NEUROLOGICAL: Higher mental function: The patient is awake, alert, oriented to self, place and time. Patient is following commands. No aphasia and no neglect. Cranial nerves: The pupils are round, equal and reactive to light and accommodation. Visual obrien are full to confrontation throughout. Extraocular movement is intact no nystagmus is noted. Facial sensation is normal to touch throughout. The facial strength is normal throughout. Hearing is normal bilaterally to hand rub. Tongue is midline and moved [id number] without any difficulty. No dysarthria is noted. Shoulder shrug is normal bilaterally. Motor: The strength in left lower extremity is limited because of pain. Has at least 4+ on left lower extremity but again limited because of pain. Otheriwse 5 over 5 throughout. Normal tone and bulk. Cerebellum: Normal finger to nose heel to david bilaterally. Sensation: Sensation is normal to touch throughout. Reflexes (right/left): 2+ Plantars are downgoing bilaterally. Results - Laboratory Findings CBC and BMP: 06/21/24 02:43 06/21/24 02:43 Abnormal Lab Findings: Abnormal Labs 06/21/24 06/21/24 02:43 02:43 Plt Count 139 L Potassium 5.8 H BUN 22 H Glucose 172 H AST 90 H ALT 66 H Assessment and Plan Assessment: This is a 63-year-old gentleman who present emergency department because of low back pain with radicular symptoms since this past Saturday while fishing and had difficulty controlling his fish. He developed left lower back pain with radicular pain to left inguinal pain. Patient had imaging of CT abdomen pelvis which was reviewed by orthopedic and it was felt the patient has severe L3 to S1 spondylosis with stenosis with facet hypertrophy and has thoracic spine ankylosis with ostial phytosis. Left lumbar sacral radiculopathy Underlying history of hypertension Obesity Plan: Orthopedic team recommended conservative treatment at this time and they recommend Dilaudid and the patient will benefit from low-dose narcotic. As well as trial of Decadron and Flexeril. Will defer further imaging to the orthopedic team. Consider EMG with nerve con duction study of the left lower extremity as an outpatient. For the rest of the medical management the primary team and other specialist Plan discussed with the patient and his nurse Thank you for the consultation. Dr. Love will resume neurology service tomorrow A.M. Time with Patient: Greater than 30
[2024-06-21] MEDS: DEXAMETHASONE SOD PHOSPHATE 10 MG/ML 1 ML VIAL IVP SCH (11:09)
[2024-06-21] MEDS: LOSARTAN-HCTZ 50-12.5 MG 1 EACH TAB PO SCH (12:33)
[2024-06-21] MEDS: CITALOPRAM HYDROBROMIDE 10 MG TAB PO SCH (12:33)
[2024-06-21] MEDS: atenoloL 50 MG TAB PO SCH (12:33)
[2024-06-21] MEDS: CYCLOBENZAPRINE 5 MG TAB PO PRN (13:10)
--- NOTE | 2024-06-21 15:24 | P.HPIM ---
History of Present Illness H&P Date: 06/21/24 History of present illness; 63-year-old male patient with past medical history significant for hypertension who presented to ER for worsening neck pain. Patient stated that he developed significant lower back pain since past Saturday when he was fishing and tried to catch a fish. Patient stated that low back pain was on the left, radiating down to the anterior left inguinal region. Because of the pain patient went down to his knees. Patient denied any urinary or bowel incontinence, denied any saddle anesthesia, denied any weakness or numbness of the lower extremities. Denied any trauma to the lower back. Denied any fever, chills. Vitals unremarkable. Lab work showed unremarkable CBC with mildly low platelet 139. BMP showed elevated potassium 5.8 on presentation. UA was unremarkable. CT abdomen/pelvis was negative for acute process. Patient admitted to internal medicine service REVIEW OF SYSTEMS: CONSTITUTIONAL: No fever, no malaise, no fatigue. HEENT: No recent visual problems or hearing problems. Denied any sore throat. CARDIOVASCULAR: No chest pain, orthopnea, PND, no palpitations, no syncope. PULMONARY: No shortness of breath, no cough, no hemoptysis. GASTROINTESTINAL: No diarrhea, no nausea, no vomiting, no abdominal pain. NEUROLOGICAL: No headaches, no weakness, no numbness. HEMATOLOGICAL: Denies any bleeding or petechiae. GENITOURINARY: Denies any burning micturition, frequency, or urgency. MUSCULOSKELETAL/RHEUMATOLOGICAL: Denies any joint pain, swelling, or any muscle pain. ENDOCRINE: Denies any polyuria or polydipsia. The rest of the 14-point review of systems is negative. PHYSICAL EXAMINATION: GENERAL: The patient is alert and oriented x3, not in any acute distress. Well developed, well nourished. HEENT: Pupils are round and equally reacting to light. EOMI. No scleral icterus. No conjunctival pallor. Normocephalic, atraumatic. No pharyngeal erythema. No thyromegaly. CARDIOVASCULAR: S1 and S2 present. No murmurs, rubs, or gallops. PULMONARY: Chest is clear to auscultation, no wheezing or crackles. ABDOMEN: Soft, nontender, nondistended, normoactive bowel sounds. No palpable organomegaly. MUSCULOSKELETAL: No joint swelling or deformity. EXTREMITIES: No cyanosis, clubbing, or pedal edema. NEUROLOGICAL: Gross neurological examination did not reveal any focal deficits. SKIN: No rashes. Assessment and plan Acute back pain: Severe L3-S1 spondylosis with stenosis: L3 S1 facet hypertrophy Thoracic spine ankylosis with osteophytosis: Presented with acute back pain. Neurology and orthopedic consulted. Orthopedic recommended conservative management with pain control. Currently on IV Dilaudid, started oral narcotic, continue IV Decadron and Flexeril. Monitor with neurochecks. PT/OT consult. Hyperkalemia: Likely secondary to losartan. Hold losartan hydrochlorothiazide. Resume atenolol. Recheck BMP. Dictation was produced using [employer] dictation software. please excuse any grammatical, word or spelling errors. Past Medical History Past Medical History: Hypertension History of Any Multi-Drug Resistant Organisms: None Reported Past Surgical History: Hernia Repair Additional Past Surgical History / Comment(s): left knee scope, and facial surgery Past Psychological History: No Psychological Hx Reported Smoking Status: Never smoker Past Alcohol Use History: None Reported Past Drug Use History: None Reported Medications and Allergies Home Medications Medication Instructions Recorded Confirmed Type Aspirin EC [Ecotrin Low Dose] 162 mg PO DAILY 12/24/16 06/21/24 History Losartan/Hydrochlorothiazide 1 tab PO DAILY 12/24/16 06/21/24 History [Losartan-Hctz 100-25 mg Tab] Citalopram Hydrobromide [CeleXA] 10 mg PO DAILY 06/21/24 06/21/24 History Rosuvastatin [Crestor] 10 mg PO DAILY 06/21/24 06/21/24 History atenoloL [Tenormin] 50 mg PO DAILY 06/21/24 06/21/24 History metFORMIN HCL ER [Glucophage XR] 500 mg PO DAILY 06/21/24 06/21/24 History Allergies Allergy/AdvReac Type Severity Reaction Status Date / Time Anesthetics - Amide Type - AdvReac Nausea & Verified 06/21/24 08:44 Select A Vomiting Anesthetics - Teresa Type- AdvReac Nausea & Verified 06/21/24 08:44 Parabens Vomiting Physical Exam Vitals: Vital Signs Temp Pulse Resp BP Pulse Ox 06/21/24 08:07 97.6 F 56 L 20 137/89 95 06/21/24 06:54 57 L 18 143/89 96 06/21/24 01:31 97.4 F L 65 20 145/90 95 Intake and Output 06/21/24 06/21/24 06/21/24 06:59 14:59 22:59 Intake Total 200 Balance 200 Intake: Oral 200 Other: Weight 138.346 kg 138.346 kg Results CBC & Chem 7: 06/21/24 02:43 06/21/24 02:43 Labs: Abnormal Lab Results - Last 24 Hours (Table) 06/21/24 06/21/24 Range/Units 02:43 02:43 Plt Count 139 L (150-450) k/uL Potassium 5.8 H (3.5-5.1) mmol/L BUN 22 H (9-20) mg/dL Glucose 172 H (74-99) mg/dL AST 90 H (17-59) U/L ALT 66 H (4-49) U/L Thrombosis Risk Factor Assmnt - Choose All That Apply Any of the Below Risk Factors Present?: Yes Each Factor Represents 1 point: Obesity (BMI >25) Other Risk Factors: Yes Each Risk Factor Represents 2 Points: Age 61-74 years Thrombosis Risk Factor Assessment Total Risk Factor Score: 3 Thrombosis Risk Factor Assessment Level: Moderate Risk
[2024-06-21] MEDS: HYDROcodone/APAP 7.5-325MG 1 EACH TAB PO PRN (16:17)
[2024-06-21 17:01] LABS: African American GFR (CKD) >90 (>60 ml/min/1.73 sqM); Anion Gap 10 mmol/L; Blood Urea Nitrogen 17 mg/dL (9-20); Calcium 8.8 mg/dL (8.4-10.2); Carbon Dioxide 19 mmol/L (22-30); Chloride 107 mmol/L (98-107); Glucose 232 mg/dL (74-99); Non-African American GFR(CKD) >90 (>60 ml/min/1.73 sqM); Potassium 4.6 mmol/L (3.5-5.1); Sodium 136 mmol/L (137-145)
[2024-06-22] MEDS: ENOXAPARIN 40 MG/0.4 ML SYRINGE SQ SCH (08:31)
--- NOTE | 2024-06-22 09:42 | P.PN ---
Subjective Progress Note Date: 06/22/24 Principal diagnosis: Severe low back pain Patient seen and examined this morning. Patient is resting in bed. He does report that he has been ambulating to the restroom. Discussed with patient that physical therapy will be in to work with him today. He does report some impr ovement in his low back pain since yesterday. He continues to have an aching left lateral lumbar pain that intermittently radiates into the left groin with increased activity. Discussed with patient the option of surgical intervention and patient would like to stay with treatments conservative at this time. Informed patient that we could consult to pain management, patient agrees and would like to proceed with this option. Patient continues to deny any numbness or tingling into the bilateral lower extremities. He denies any perineal numbness or tingling or loss of bowel or bladder. Objective - Vital Signs Vital signs: Vital Signs Temp 97.8 F 06/22/24 07:00 Pulse 69 06/22/24 07:00 Resp 18 06/22/24 07:00 BP 114/69 06/22/24 07:00 Pulse Ox 94 L 06/22/24 07:00 FiO2 Intake & Output 06/21/24 06/22/24 06/22/24 18:59 06:59 18:59 Intake Total 318 Balance 318 Weight 138.346 kg Intake: Oral 318 Other: # Voids 1 1 - Exam Physical Examination General: The patient is awake and alert, in no acute distress Skin: Skin is warm and dry with no obvious rashes or lesions. Eye: Pupils are equal, round and reactive to light, extra-ocular movements are intact; there is normal conjunctiva bilaterally. Neck: The neck is supple, there is no tenderness and ROM intact. Cardiovascular: There is a regular rate and rhythm. No murmur, rub or gallop is appreciated. Respiratory: Lungs are clear to auscultation, respirations are non-labored, breath sounds are equal. Gastrointestinal: Soft, non-distended, non-tender abdomen. Back: There is no tenderness to palpation in the midline, paralumbar, parathoracic or buttocks region. There is no obvious deformity . Musculoskeletal: ROM limited secondary to pain. Muscle strength in all major muscle groups of bilateral upper extremities 5/5, bilateral lower extremities 5/5. Neurological: CN 2-12 intact. There are no obvious motor or sensory deficits. Movement and coordination equal and intact. Sensory exam to light touch intact C5-T1 and intact from L2-S1. Reflexes 2/4 in bilateral upper and lower extremities. Negative Hoffmans, babinski, and clonus signs. Psychiatric: Cooperative, appropriate mood & affect, normal judgment. - Labs CBC & Chem 7: 06/21/24 02:43 06/21/24 16:16 Labs: Abnormal Lab Results - Last 24 Hours (Table) 06/21/24 Range/Units 16:16 Sodium 136 L (137-145) mmol/L Carbon Dioxide 19 L (22-30) mmol/L Glucose 232 H (74-99) mg/dL Assessment and Plan Assessment: Severe L3-S1 spondylosis with stenosis L3-S1 facet hypertrophy Thoracic spine ankylosis with osteophytosis Mechanical low back pain Plan: At this time we will continue with conservative treatment options at this time. Consult placed for Pain Management for possible injections. Order placed for MRI of the Lumbar Spine. 2. Appreciate medical management 3. Pain management -continue with IV Dilaudid, patient may benefit from low- dose oral narcotic. Trial of IV Decadron and Flexeril has been ordered. 4. GI prophylaxis -per medicine 5. DVT prophylaxis -Lovenox 6. PT/OT - consult placed: weightbearing as tolerated with a walker as needed. 7. Appreciate consult I reviewed and discussed this case with my attending Dr. Fernando, whom has reviewed this chart and films and is in agreement with assessment and plan of care as outlined above. I have personally seen and examined the patient, performed the documentation and the assessment and plan as written. Number of minutes spent on the visit: 30m.
[2024-06-22 10:20] LABS: Basophils # (A) 0.01 X 10*3/uL (0.00-0.10); Basophils % (A) 0.1 %; Eosinophils # (A) 0.03 X 10*3/uL (0.04-0.35); Eosinophils % (A) 0.3 %; HCT 40.5 % (39.6-50.0); HGB 13.4 g/dL (13.0-17.0); Lymphocytes # (A) 0.96 X 10*3/uL (0.90-5.00); Lymphocytes % (A) 9.6 %; MCH 29.6 pg (27.0-32.0); MCHC 33.1 g/dL (32.0-37.0); MCV 89.4 FL (80.0-97.0); Mean Platelet Volume 13.4 FL (9.5-12.2); Monocytes # (A) 0.13 X 10*3/uL (0.20-1.00); Monocytes % (A) 1.3 %; NRBC Per 100 WBC 0 X 10*3/uL (0.00-0.01); Neutrophils # (A) 8.76 X 10*3/uL (1.80-7.70); Neutrophils % (A) 87.7 %; Platelet Count 149 X 10*3/uL (140-440); RBC 4.53 X 10*6/uL (4.40-5.60); RDW 13.5 % (11.5-14.5); WBC 9.99 X 10*3/uL (4.50-10.00)
[2024-06-22 10:33] LABS: Blood Urea Nitrogen 17.1 mg/dL (9.0-27.0); Chloride 104 mmol/L (96-109); Glucose 221 mg/dL (70-110); Magnesium 2.1 mg/dL (1.5-2.4); Potassium 4.4 mmol/L (3.5-5.5); Sodium 137 mmol/L (135-145)
[2024-06-22 10:34] LABS: ALT 51 U/L (10-49); AST 33 U/L (14-35); Albumin 4.3 g/dL (3.8-4.9); Albumin/Globulin Ratio 1.95 Ratio (1.60-3.17); Alkaline Phosphatase 72 U/L (41-126); Calcium 8.7 mg/dL (8.7-10.3); Globulin 2.2 g/dL (1.6-3.3); Total Bilirubin 0.3 mg/dL (0.3-1.2); Total Protein 6.5 g/dL (6.2-8.2)
--- NOTE | 2024-06-22 13:08 | MR ---
EXAMINATION TYPE: MR lumbar spine wo con DATE OF EXAM: 06/22/2024 COMPARISON: none HISTORY: Severe Back Pain TECHNIQUE: Multiplanar, multisequence images of the lumbar spine were acquired without IV contrast. L1-L2: Normal disc appearance without desiccation. No herniation, protrusion or disc bulging. No ca nal stenosis is present. Foramina are patent bilaterally. L2-L3: Normal disc appearance without desiccation. No herniation, protrusion or disc bulging. No ca nal stenosis is present. Foramina are patent bilaterally. L3-L4: L3 vertebral body hemangioma noted. There is mild decreased desiccation and loss of height com patible with degenerative disc disease. Posterior disc bulge right hypertrophy of the ligamentum flav um and facet joint arthropathy resulting in [id number] central stenosis. Moderate right foramin al encroachment. L4-L5: There is moderate to severe decreased desiccation and loss of height compatible with degenerat eleonora disc disease. Posterior disc bulge right hypertrophy of the ligamentum flavum and facet joint art hropathy resulting in moderate central stenosis. Severe bilateral neural foraminal encroachment. L5-S1: Moderate disc desiccation. Mild posterior disc bulge. No evidence for central stenosis or late ral recess stenosis. Mild left foraminal encroachment. Lumbar segments are intact. No paraspinal masses are identified. Conus medullaris has a normal appe arance. IMPRESSION: 1. Multilevel degenerative disc disease with central stenosis noted.
--- NOTE | 2024-06-22 14:36 | P.PN ---
Subjective Progress Note Date: 06/22/24 63-year-old male patient with past medical history significant for hypertension who presented to ER for worsening neck pain. Patient stated that he developed significant lower back pain since past Saturday when he was fishing and tried to catch a fish. Patient stated that low back pain was on the left, radiating down to the anterior left inguinal region. Because of the pain patient went down to his knees. Patient denied any urinary or bowel incontinence, denied any saddle anesthesia, denied any weakness or numbness of the lower extremities. Denied any trauma to the lower back. Denied any fever, chills. Vitals unremarkable. Lab work showed unremarkable CBC with mildly low platelet 139. BMP showed elevated potassium 5.8 on presentation. UA was unremarkable. CT abdomen/pelvis was negative for acute process. Patient admitted to internal medicine service 06/22. Patient seen and examined. States back pain has improved. REVIEW OF SYSTEMS: CONSTITUTIONAL: No fever, no malaise,. CARDIOVASCULAR: No chest pain, no palpitations, no syncope. PULMONARY: No shortness of breath, no cough, GASTROINTESTINAL: No diarrhea, no nausea, no vomiting, no abdominal pain. NEUROLOGICAL: No headaches, no weakness, PHYSICAL EXAMINATION: GENERAL: The patient is alert and oriented x3, not in any acute distress. Well developed, well nourished. HEENT: Pupils are round and equally reacting to light. EOMI. No scleral icterus. No conjunctival pallor. Normocephalic, atraumatic. No pharyngeal erythema. No thyromegaly. CARDIOVASCULAR: S1 and S2 present. No murmurs, rubs, or gallops. PULMONARY: Chest is clear to auscultation, no wheezing or crackles. ABDOMEN: Soft, nontender, nondistended, normoactive bowel sounds. No palpable organomegaly. MUSCULOSKELETAL: No joint swelling or deformity. EXTREMITIES: No cyanosis, clubbing, or pedal edema. NEUROLOGICAL: Gross neurological examination did not reveal any focal deficits. SKIN: No rashes. Assessment and plan Acute back pain: Severe L3-S1 spondylosis with stenosis L3-S1 facet hypertrophy Thoracic spine ankylosis with osteophytosis Mechanical low back pain Monitor vital signs Monitor CBC Monitor CMP Continue pain management Orthopedic spine eval the patient, recommended pain management consult and symptomatic treatment. Hyperkalemia: Likely secondary to losartan. Hold losartan hydrochlorothiazide. Resume atenolol. Recheck BMP. Labs and medication were reviewed.. Continue same treatment. Continue with symptomatic treatment. Resume home medication. Monitor labs and vitals. DVT and GI prophylaxis. Further recommendations as per clinical course of the patient Dictation was produced using [employer] dictation software. please excuse any grammatical, word or spelling errors. Objective - Vital Signs Vital signs: Vital Signs Temp 97.8 F 06/22/24 07:00 Pulse 69 06/22/24 08:00 Resp 18 06/22/24 08:00 BP 114/69 06/22/24 07:00 Pulse Ox 94 L 06/22/24 07:00 FiO2 Intake & Output 06/21/24 06/22/24 06/22/24 18:59 06:59 18:59 Intake Total 318 118 Balance 318 118 Weight 138.346 kg Intake: Oral 318 118 Other: Voiding Method Toilet # Voids 1 1 - Labs CBC & Chem 7: 06/22/24 05:46 06/22/24 05:46 Labs: Abnormal Lab Results - Last 24 Hours (Table) 06/21/24 06/22/24 06/22/24 Range/Units 16:16 05:46 05:46 MPV 13.4 H (9.5-12.2) FL Immature Gran # 0.10 H (0.00-0.04) X 10*3/uL Neutrophils # 8.76 H (1.80-7.70) X 10*3/uL Monocytes # 0.13 L (0.20-1.00) X 10*3/uL Eosinophils # 0.03 L (0.04-0.35) X 10*3/uL Sodium 136 L (137-145) mmol/L Carbon Dioxide 19 L 21.0 L (22-30) mmol/L Glucose 232 H 221 H (74-99) mg/dL ALT 51 H (10-49) U/L
--- NOTE | 2024-06-22 14:59 | P.PAINPG ---
Objective - Vital Signs Vital signs: Vital Signs Temp 97.8 F 06/22/24 07:00 Pulse 69 06/22/24 14:00 Resp 18 06/22/24 14:00 BP 114/69 06/22/24 07:00 Pulse Ox 94 L 06/22/24 07:00 FiO2 Intake & Output 06/21/24 06/22/24 06/22/24 18:59 06:59 18:59 Intake Total 318 118 Balance 318 118 Weight 138.346 kg Intake: Oral 318 118 Other: Voiding Method Toilet # Voids 1 1 3 - Labs CBC & Chem 7: 06/22/24 05:46 06/22/24 05:46 Labs: Abnormal Lab Results - Last 24 Hours (Table) 06/21/24 06/22/24 06/22/24 Range/Units 16:16 05:46 05:46 MPV 13.4 H (9.5-12.2) FL Immature Gran # 0.10 H (0.00-0.04) X 10*3/uL Neutrophils # 8.76 H (1.80-7.70) X 10*3/uL Monocytes # 0.13 L (0.20-1.00) X 10*3/uL Eosinophils # 0.03 L (0.04-0.35) X 10*3/uL Sodium 136 L (137-145) mmol/L Carbon Dioxide 19 L 21.0 L (22-30) mmol/L Glucose 232 H 221 H (74-99) mg/dL ALT 51 H (10-49) U/L PQRS Measure Charge Sheet Comment: HISTORY OF PRESENT ILLNESS: A 63 yr old inpatient male w at side as a referral from [facility] presents today w severe LBP x 1 wk secondary to radiculopathy, DDD, spondylosis and facet arthropathy without myelopathy for evaluation. Pt states pain level is provoked at 9 /10 in intensity, constant, localized in the mid-lower lumbar spine, predominantly axial, throbbing in character w occasional shooting pain towards the BL thighs, knees and calves. Pain is provoked by any movement. Pain is alleviated by medications ([place] 7.5/325mg q6h, Dilaudid 1mg IVP q3h prn, Flexeril, ASA, Tyl), manual massage, repositioning and rest . PMH: OA, HTN PSH: Hernia Repair, L Knee Arthroscopy, Facial Surgery SH: Negative x3 FH: Non contributory All: See list Meds: See list REVIEW OF ORGAN SYSTEMS: CONSTITUTIONAL: No fevers or chills. No recent weight loss. NEUROLOGICAL: + numbness and tingling along the distal extremities. No seizure disorders or headaches. MUSCULOSKELETAL: + pain PSYCHIATRIC: Denies current depression or suicidal thoughts. Physical Examinations : Constitutional : Cooperative , not in acute distress . Neurologic : Cranial nerve II to XII intact. No focal neurological deficits. Psychiatric : alert & oriented x 3. Matching mood & appropriate affect. Judgment & insight intact. Musculoskeletal : Cervical Spine Motor strength in the deltoid and biceps: Normal right side. Normal Left side Motor strength biceps and the wrist extensors: Normal right side . Normal left side Motor strength in the triceps muscle: Normal right side. Normal left side Deep tendon reflexes: Normal at the biceps. Normal at Brachioradialis. Normal at triceps Vertebral body tenderness to deep palpation over Cervical facet loading test: positive bilaterally Spurling test: positive bilaterally Neck distraction test: positive bilaterally Maday sign: positive bilaterally Lumbar spine Motor strength lower extremities ,thigh and legs 5/5 Right side , 5/5 Left side Deep tendon reflexes : Normal Knee Jerk. Normal Ankle Jerk Vertebral body tenderness over L4 Bright Test positive BL L3-L4, L4-L5 Lumbar facet Loading Test: positive Right / positive Left Range of motion of the lumbar spine Flexion 30 degrees, extension 10 degrees Straight Leg Raise test: Left/ Right positive at degrees Misha test: positive right / positive left. Severe tenderness over the Sacroiliac joint on the Right / Left sides Gaenslen test: positive bilaterally Seated flexion test: positive bilater ally. Sacral spine : Severe tenderness over the Sacroiliac joint: right side / left side Range of motion: Flexion of the lumbar spine <60 degrees Range of motion: Extension of the lumbar spine <20 degrees Gaenslen's Test positive Misha test: positive right side / left side Thigh Thrust Test Sacral Thrust Test Imaging: CT Abd/ Pelvis reviewed Assessment/ Plan : Lumbar radiculopathy, Lumbar DDD Recommendation of SOLA L4-L5 #1. Risks, benefits of procedure discussed and pa tient verbalized understanding. Admits to anti- coagulant use or medical history of diabetes. Protocol for discontinuation/ continuation of medications saúl procedure discussed w nursing staff. All questions answered. I have spent greater than 30 minutes on patient care today. Dr Tamayo was available by phone for the evaluation of this patient. The time was used to review the medical records including relevant urine studies and Prescription history (MAPs), review of the available imaging, evaluation and examination of the patient, coordination of care with the medical staff and if applicable referring physicians, as well as creation of the medical record - Pain Location None Non-Pharmacological Interventions: Position/Reposition, Reduce Environmental Stimuli, Relaxation Technique Pharmacological Interventions: Discuss Pain Med Options Back Non-Pharmacological Interventions: Darkened Room, Inactivity Pharmacological Interventions: Discuss Pain Med Options, PRN Medication PQRS Narrative: Smoking Status Never smoker Blood Pressure [Left Arm] 114/69 Blood Pressure 137/89 Pain Intensity [Back] 4 Pain Intensity [None] 0 Pain Intensity 2 Pain Scale Used Numeric (1 - 10) Scale Used Numeric (1 - 10) Home Medications: Ambulatory Orders Aspirin EC [Ecotrin Low Dose] 162 mg PO DAILY 12/24/16 Losartan/Hydrochlorothiazide [Losartan-Hctz 100-25 mg Tab] 1 tab PO DAILY 12/24/16 Citalopram Hydrobromide [CeleXA] 10 mg PO DAILY 06/21/24 Rosuvastatin [Crestor] 10 mg PO DAILY 06/21/24 atenoloL [Tenormin] 50 mg PO DAILY 06/21/24 metFORMIN HCL ER [Glucophage XR] 500 mg PO DAILY 06/21/24 Controlled Substance Measures - Controlled Substance Measures Is patient prescribed a controlled substance at discharge?: No
[2024-06-22] MEDS: DOCUSATE 100 MG CAP PO STA (17:44)
--- NOTE | 2024-06-23 10:05 | P.PN ---
Subjective Progress Note Date: 06/22/24 Patient was initially seen by Dr. Dimitry Caraballo. Please refer to his note for details. Patient is a 63-year-old male with left radiculopathy. Orthopedic surgeries on board. Patient was seen for a follow-up. Patient states his low back is "a little better". He is scheduled for epidural steroid injection tomorrow. He complains of pain in the left SI region and extends to the left lower abdominal region. It does not typically extend down to the left leg. Therefore uncertain if from radiculopathy. Sometimes goes up to 10/10 other times can be between 5-6/10 or even down to 3-4/10 with medication. He denies any numbness in the legs on either side. Renal stones have been ruled out. Objective - Vital Signs Vital signs: Vital Signs Temp 97.7 F 06/22/24 15:00 Pulse 77 06/22/24 15:00 Resp 17 06/22/24 15:00 BP 119/65 06/22/24 15:00 Pulse Ox 95 06/22/24 15:00 FiO2 Intake & Output 06/21/24 06/22/24 06/22/24 18:59 06:59 18:59 Intake Total 318 118 Balance 318 118 Weight 138.346 kg Intake: Oral 318 118 Other: Voiding Method Toilet # Voids 1 1 3 - Exam Patient's mental status, speech and language functions are normal. Cranial nerves are normal. Muscle strength is normal in the arms and legs distally and proximally Sensory touch is equal with no neglect. No sensory loss in any dermatomal distribution. No ataxia for [id number] testing. - Labs CBC & Chem 7: 06/22/24 05:46 06/22/24 05:46 Labs: Abnormal Lab Results - Last 24 Hours (Table) 06/21/24 06/22/24 06/22/24 Range/Units 16:16 05:46 05:46 MPV 13.4 H (9.5-12.2) FL Immature Gran # 0.10 H (0.00-0.04) X 10*3/uL Neutrophils # 8.76 H (1.80-7.70) X 10*3/uL Monocytes # 0.13 L (0.20-1.00) X 10*3/uL Eosinophils # 0.03 L (0.04-0.35) X 10*3/uL Sodium 136 L (137-145) mmol/L Carbon Dioxide 19 L 21.0 L (22-30) mmol/L Glucose 232 H 221 H (74-99) mg/dL ALT 51 H (10-49) U/L Assessment and Plan Assessment: This is a 63-year-old gentleman who present emergency department because of low back pain with radicular symptoms since this past Saturday while fishing and had difficulty controlling his fish. He developed left lower back pain with radicular pain to left inguinal pain. Patient had imaging of CT abdomen pelvis which was reviewed by orthopedic and it was felt the patient has severe L3 to S1 spondylosis with stenosis with facet hypertrophy and has thoracic spine ankyl osis with osteophytes. Left lumbar sacral radiculopathy Underlying history of hypertension Obesity Plan: Orthopedic team recommended conservative treatment at this time and they recommend Dilaudid and the patient will benefit from low-dose narcotic. As well as trial of Decadron and Flexeril. I agree with the management. Patient himself does not want surgical treatment at this time. Patient's symptoms are somewhat unusual, as the radiation of pain is CT abdomen and pelvis is reported as no acute findings. Orthopedic surgery team reviewed the images and felt the patient has L3-S1 severe spondylosis with severe facet arthrosis and there is near complete disc collapse at this level with vacuum disc phenomenon. There is severe facet hypertrophy and arthropathy causing some facet stenosis and bilateral foraminal stenosis at this level. MRI lumbar spine revealed multilevel degenerative disc disease with central stenosis. At L3-L4 level, there is mild to moderate central stenosis. At L4- L5, there is moderate central stenosis, severe bilateral neural foraminal encroachment. I personally reviewed MRI agree with the findings. Patient has been seen by pain management, and recommending SOLA L4-L5 level, which will be performed tomorrow. Will defer further imaging to the orthopedic team. Consider EMG with nerve conduction study of the left lower extremity as an outpatient. For the rest of the medical management the primary team and other specialist
--- NOTE | 2024-06-23 13:59 | P.PN ---
Subjective Progress Note Date: 06/23/24 63-year-old male patient with past medical history significant for hypertension who presented to ER for worsening neck pain. Patient stated that he developed significant lower back pain since past Saturday when he was fishing and tried to catch a fish. Patient stated that low back pain was on the left, radiating down to the anterior left inguinal region. Because of the pain patient went down to his knees. Patient denied any urinary or bowel incontinence, denied any saddle anesthesia, denied any weakness or numbness of the lower extremities. Denied any trauma to the lower back. Denied any fever, chills. Vitals unremarkable. Lab work showed unremarkable CBC with mildly low platelet 139. BMP showed elevated potassium 5.8 on presentation. UA was unremarkable. CT abdomen/pelvis was negative for acute process. Patient admitted to internal medicine service 06/22. Patient seen and examined. States back pain has improved. 06/23. Patient seen and examined. Patient supposed to get SOLA injection today REVIEW OF SYSTEMS: CONSTITUTIONAL: No fever, no malaise,. CARDIOVASCULAR: No chest pain, no palpitations, no syncope. PULMONARY: No shortness of breath, no cough, GASTROINTESTINAL: No diarrhea, no nausea, no vomiting, no abdominal pain. NEUROLOGICAL: No headaches, no weakness, PHYSICAL EXAMINATION: GENERAL: The patient is alert and oriented x3, not in any acute distress. Well developed, well nourished. HEENT: Pupils are round and equally reacting to light. EOMI. No scleral icterus. No conjunctival pallor. Normocephalic, atraumatic. No pharyngeal erythema. No thyromegaly. CARDIOVASCULAR: S1 and S2 present. No murmurs, rubs, or gallops. PULMONARY: Chest is clear to auscultation, no wheezing or crackles. ABDOMEN: Soft, nontender, nondistended, normoactive bowel sounds. No palpable organomegaly. MUSCULOSKELETAL: No joint swelling or deformity. EXTREMITIES: No cyanosis, clubbing, or pedal edema. NEUROLOGICAL: Gross neurological examination did not reveal any focal deficits. SKIN: No rashes. Assessment and plan Acute back pain: Severe L3-S1 spondylosis with stenosis L3-S1 facet hypertrophy Thoracic spine ankylosis with osteophytosis Mechanical low back pain Monitor vital signs Monitor CBC Monitor CMP Continue pain management Orthopedic spine eval the patient, recommended pain management consult and symptomatic treatment. Pain management recommending SOLA, scheduled for today Hyperkalemia: Likely secondary to losartan. Hold losartan hydrochlorothiazide. Continue atenolol. Labs and medication were reviewed.. Continue same treatment. Continue with symptomatic treatment. Resume home medication. Monitor labs and vitals. DVT and GI prophylaxis. Further recommendations as per clinical course of the patient Dictation was produced using [employer] dictation software. please excuse any grammatical, word or spelling errors. Objective - Vital Signs Vital signs: Vital Signs Temp 98.4 F 06/23/24 07:10 Pulse 58 L 06/23/24 08:00 Resp 18 06/23/24 08:00 BP 155/78 06/23/24 07:10 Pulse Ox 93 L 06/23/24 07:10 FiO2 Intake & Output 06/22/24 06/23/24 06/23/24 18:59 06:59 18:59 Intake Total 236 780 118 Balance 236 780 118 Intake: Oral 236 780 118 Other: Voiding Method Toilet Toilet # Voids 3 2 - Labs CBC & Chem 7: 06/22/24 05:46 06/22/24 05:46
[2024-06-23] MEDS ORDERED: methylPREDNISolone ACETATE 40 MG/ML 1 ML VIAL ONE (14:26)
[2024-06-23] MEDS ORDERED: IOPAMIDOL M200 10 ML VIAL ONE (14:26)
--- NOTE | 2024-06-23 14:33 | P.PCN ---
Date of Procedure: 06/23/24 Description of Procedure: PREOPERATIVE DIAGNOSIS: lumbar radiculopathy POSTOPERATIVE DIAGNOSIS: Lumbar radiculopathy PROCEDURE 1. Lumbar epidural steroid injection under fluoroscopic guidance at the L4-L5 level. 2. Lumbar epidurogram. Imaging: Fluoroscopy was used, images where saved to the medical record ANESTHESIA: Patient re-evaluated immediately prior to sedation local only EBL: Minimal PROCEDURE INDICATION: The patient with low back pain and radiculitis symptoms unresponsive to conservative treatment. Fluoroscopy was used to optimize visualization of the needle placement and to maximize safety. PROCEDURE DESCRIPTION / TECHNIQUE: The patient was seen and identified in the preoperative area. Risks, benefits, complications including but not limited to infections, bleeding, allergic reaction to medications, nerve damage and incomplete pain relief, as well as alternatives to the procedure were discussed with the patient. The patient agreed to proceed with the procedure and signed the consent. IV was started if indicated above, and vital signs were stable. Patient was taken to the OR and time out was completed. The patient was placed in the prone position on procedure table and a pillow was placed under the abdomen to reduce lumbar lordosis. The lumbosacral area was prepped and draped in the usual sterile fashion. Vitals were closely monitored during the procedure. Using anterior-posterior fluoroscopy, the L4-L5 interlaminar space was identified and the skin over this site was marked and then infiltrated with 1% lidocaine subcutaneously. Subsequently, a 18-gauge 6 inch Tuohy epidural needle was inserted and advanced toward the epidural space using the Loss of resistance technique and guided by AP and lateral fluoroscopy. The correct needle position in the epidural space was verified with the injection of 1 mL of Omnipaque 180 contrast to observe an acceptable epidurogram, after negative aspiration for blood and CSF and in the absence of paresthesias. Again after negative aspiration, a 3 ml mixture containing 40mg of depomedrol and 2 ml of preservative free Normal Saline was injected and a washout of epidurogram was seen. Needle was withdrawn intact, skin was cleansed, and bandages were applied. COMPLICATIONS: None DISPOSITION / PLANS: The patient was placed in a supine position and transferred to the recovery area in a stable condition for observation. There was no evidence of lower extremity motor or sensory deficit after the procedure. Patient was discharged from the recovery room after meeting discharge criteria. Home discharge instructions were given to the patient by the staff. The patient was reexamined prior to discharge. The patient will follow up as directed.
--- NOTE | 2024-06-23 14:49 | FL ---
Fluoroscopy History: M54.16 LUMBAR RADICULOPATHY LESI DAP 3.9 FL [id number]
[2024-06-23] MEDS: MELOXICAM 7.5 MG TAB PO SCH (20:43)
--- NOTE | 2024-06-24 07:11 | P.PN ---
Subjective Progress Note Date: 06/23/24 06/23/2024: Patient was seen for a follow-up. Patient had undergone successful lumbar epidural steroid injection at L4-L5 level. Patient says the pain is improved, 3-4/10. His pain is mainly located in the left SI region that extends to the left lower abdominal region, just above the groin. I do not see any rash, no signs of herpes. Patient mentions that all the symptoms started while he was fishing, and once he got the fish on the elva, he twisted his back, and the back started hurting. 06/22/2024: Patient was initially seen by Dr. Dimitry Caraballo. Please refer to his note for details. Patient is a 63-year-old male with left radiculopathy. Orthopedic surgeries on board. Patient was seen for a follow-up. Patient states his low back is "a little better". He is scheduled for epidural steroid injection tomorrow. He complains of pain in the left SI region and extends to the left lower abdominal region. It does not typically extend down to the left leg. Therefore uncertain if from radiculopathy. Sometimes goes up to 10/10 other times can be between 5-6/10 or even down to 3-4/10 with medication. He denies any numbness in the legs on either side. Renal stones have been ruled out. Objective - Vital Signs Vital signs: Vital Signs Temp 97.8 F 06/23/24 14:58 Pulse 51 L 06/23/24 14:58 Resp 18 06/23/24 14:58 BP 156/88 06/23/24 14:58 Pulse Ox 96 06/23/24 14:58 FiO2 Intake & Output 06/23/24 06/23/24 06/24/24 06:59 18:59 06:59 Intake Total 780 416 Balance 780 416 Intake: Oral 780 416 Other: Voiding Method Toilet # Voids 2 5 # Bowel Movements 1 - Exam Patient's mental status, speech and language functions are normal. Cranial nerves are normal. Muscle strength is normal in the arms and legs distally and proximally Sensory touch is equal with no neglect. No sensory loss in any dermatomal distribution. No ataxia for [id number] testing. Patient is up and around, walking normally, without any pain, or discomfort or weakness. - Labs CBC & Chem 7: 06/22/24 05:46 06/22/24 05:46 Assessment and Plan Assessment: This is a 63-year-old gentleman who present emergency department because of low back pain with radicular symptoms since this past Saturday while fishing and had difficulty controlling his fish. He developed left lower back pain with radicular pain to left inguinal pain. Patient had imaging of CT abdomen pelvis which was reviewed by orthopedic and it was felt the patient has severe L3 to S1 spondylosis with stenosis with facet hypertrophy and has thoracic spine ankylosis with osteophytes. Left lumbar sacral radiculopathy Underlying history of hypertension Obesity Plan: Orthopedic team recommended conservative treatment at this time and they recommend Dilaudid and the patient will benefit from low-dose narcotic. As well as trial of Decadron and Flexeril. I agree with the management. Patient himself does not want surgical treatment at this time. Patient is status post lumbar epidural steroid injection at L4-L5 level. His pain has improved to 3-4/10. CT abdomen and pelvis is reported as no acute findings. Orthopedic surgery team reviewed the images and felt the patient has L3-S1 severe spondylosis with severe facet arthrosis and there is near complete disc collapse at this level with vacuum disc phenomenon. There is severe facet hypertrophy and arthropathy causing some facet stenosis and bilateral foraminal stenosis at this level. MRI lumbar spine revealed multilevel degenerative disc disease with central stenosis. At L3-L4 level, there is mild to moderate central stenosis. At L4- L5, there is moderate central stenosis, severe bilateral neural foraminal encroachment. I personally reviewed MRI agree with the findings. Patient will be started on Mobic 15 mg daily. Neurologically clear for discharge.
[2024-06-24 07:44] VITALS: BP 175/99; PULSE 42; RESP 18; TEMP 97.6
--- NOTE | 2024-06-24 09:58 | P.DS ---
Providers Date of admission: 06/21/24 06:36 Expected date of discharge: 06/24/24 Attending physician: Justine Sagastume Consults: 06/21/24 06:36 Consult Physician Routine Consulting Provider: Dimitry Caraballo Consult Reason/Comments: pain Do you want consulting provider notified?: Yes Consult Physician Routine Consulting Provider: Collin Fernando Consult Reason/Comments: backpain Do you want consulting provider notified?: Yes Primary care physician: Antonio Hernandez Hospital Course: Discharge diagnoses; Acute back pain: Severe L3-S1 spondylosis with stenosis L3-S1 facet hypertrophy Thoracic spine ankylosis with osteophytosis Mechanical low back pain Monitor vital signs Monitor CBC Monitor CMP Continue pain management Orthopedic spine eval the patient, recommended pain management consult and symptomatic treatment. Pain management recommending SOLA, s/p SOLA, feeling much better. Hyperkalemia: Resolved, can resume back on blood pressure medications Hospital course; 63-year-old male patient with past medical history significant for hypertension who presented to ER for worsening neck pain. Patient stated that he developed significant lower back pain since past Saturday when he was fishing and tried to catch a fish. Patient stated that low back pain was on the left, radiating down to the anterior left inguinal region. Because of the pain patient went down to his knees. Patient denied any urinary or bowel incontinence, denied any saddle anesthesia, denied any weakness or numbness of the lower extremities. Denied an y trauma to the lower back. Denied any fever, chills. Vitals unremarkable. Lab work showed unremarkable CBC with mildly low platelet 139. BMP showed elevated potassium 5.8 on presentation. UA was unremarkable. CT abdomen/pelvis was negative for acute process. Patient admitted to internal medicine service 06/22. Patient seen and examined. States back pain has improved. 06/23. Patient seen and examined. Patient supposed to get SOLA injection today 06/24. Patient seen examined. No further episodes of back pain. States he feels much better after the steroid injection. Cleared for discharge PHYSICAL EXAMINATION: GENERAL: The patient is alert and oriented x3, not in any acute distress. Well developed, well nourished. HEENT: Pupils are round and equally reacting to light. EOMI. No scleral icterus. No conjunctival pallor. Normocephalic, atraumatic. No pharyngeal erythema. No thyromegaly. CARDIOVASCULAR: S1 and S2 present. No murmurs, rubs, or gallops. PULMONARY: Chest is clear to auscultation, no wheezing or crackles. ABDOMEN: Soft, nontender, nondistended, normoactive bowel sounds. No palpable organomegaly. MUSCULOSKELETAL: No joint swelling or deformity. EXTREMITIES: No cyanosis, clubbing, or pedal edema. NEUROLOGICAL: Gross neurological examination did not reveal any focal deficits. SKIN: No rashes. Dictation was produced using [employer] dictation software. please excuse any grammatical, word or spelling errors. Patient Condition at Discharge: Fair Plan - Discharge Summary Discharge Rx Participant: Yes New Discharge Prescriptions: New Cyclobenzaprine [Flexeril] 5 mg PO TID PRN 7 Days #21 tab PRN Reason: Muscle Spasm Meloxicam [Mobic] 15 mg PO DAILY 15 Days #15 tab Continue Aspirin EC [Ecotrin Low Dose] 162 mg PO DAILY Losartan/Hydrochlorothiazide [Losartan-Hctz 100-25 mg Tab] 1 tab PO DAILY metFORMIN HCL ER [Glucophage XR] 500 mg PO DAILY Rosuvastatin [Crestor] 10 mg PO DAILY Citalopram Hydrobromide [CeleXA] 10 mg PO DAILY atenoloL [Tenormin] 50 mg PO DAILY Discharge Medication List Aspirin EC [Ecotrin Low Dose] 162 mg PO DAILY 12/24/16 [History] Losartan/Hydrochlorothiazide [Losartan-Hctz 100-25 mg Tab] 1 tab PO DAILY 12/24/16 [History] Citalopram Hydrobromide [CeleXA] 10 mg PO DAILY 06/21/24 [History] Rosuvastatin [Crestor] 10 mg PO DAILY 06/21/24 [History] atenoloL [Tenormin] 50 mg PO DAILY 06/21/24 [History] metFORMIN HCL ER [Glucophage XR] 500 mg PO DAILY 06/21/24 [History] Cyclobenzaprine [Flexeril] 5 mg PO TID PRN 7 Days #21 tab 06/24/24 [Rx] Meloxicam [Mobic] 15 mg PO DAILY 15 Days #15 tab 06/24/24 [Rx] Follow up Appointment(s)/Referral(s): Antonio Hernandez MD [Primary Care Provider] - 1-2 days [facility] [NON-STAFF] - 4 Weeks (Follow up in office in 4-6 weeks, pain clinic will call you with appt. date and time.) Collin Fernando DO [Doctor of Osteopathic Medicine] - As Needed Patient Instructions/Handouts: Lumbar Spinal Stenosis (DC), Degenerative Disc Disease (DC) Discharge Disposition: HOME SELF-CARE
== END 2024-06-24 10:35 | disposition home or self-care (01) ==
LOC: EC 01:12 → 6NMEDSUR 06:36
PROVIDERS: ADMIT Hospitalist; ATTEND Hospitalist
DX: M47.26 Other spondylosis with radiculopathy, lumbar region (principal); M47.27 Other spondylosis with radiculopathy, lumbosacral region; M47.814 Spondylosis without myelopathy or radiculopathy, thoracic region; M25.78 Osteophyte, vertebrae; I10 Essential (primary) hypertension; E87.5 Hyperkalemia; Z79.82 Long term (current) use of aspirin; Z79.84 Long term (current) use of oral hypoglycemic drugs; E66.9 Obesity, unspecified
CPT/HCPCS: 62323; 96360; 96361; 96372; 99285; 36415; 97162; 97166; 80053 ×2; 80048; 82150; 83605; 83690; 83735 ×2; 84100 ×2; 85025 ×2; 81003; 74177; 72148; G0378 ×4; J2270; J1100 ×4; J2405; J1650; J1170; J0131; J1885; Q9967; Q9966; J1010; J2470

== ENCOUNTER → 2024-07-13 | Outpatient (CLI) | payer BC | LOC: PNWHC3 11:15 | PROVIDERS: ATTEND Specialist | DX: M54.16 Radiculopathy, lumbar region | CPT/HCPCS: 99211 ==